=== PATIENT | male | born 2000 | race Caucasian/White ===

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

== ENCOUNTER → 2021-05-29 | Outpatient (CLI) | payer OTHER ==
[2021-05-31 17:44] LABS: CORONAVIRUS (COVID19) CSH-NRL Negative (Negative)
== END | disposition home or self-care (01) ==
LOC: LAB SHORT 15:19
PROVIDERS: Physician Assistant Medical
DX: Z20.822 Contact with and (suspected) exposure to COVID-19 (principal)
CPT/HCPCS: U0003

== ENCOUNTER → 2021-09-03 | Outpatient (CLI) | payer OTHER ==
[2021-09-08 00:07] LABS: CHLAMYDIA TRACHOMATIS, NAA Positive (Negative)
== END | disposition home or self-care (01) ==
LOC: LAB SHORT 12:47
PROVIDERS: Physician Assistant
DX: Z72.51 High risk heterosexual behavior (principal)
CPT/HCPCS: 87070; 87205; 87491; 87591